=== PATIENT | female | born 1955 | race Caucasian/White ===

== ENCOUNTER → 2017-05-06 | Outpatient (CLI) | payer MEDICARE, OTHER ==
[~2017-05-06] MED LIST: ACIDOPHILUS PROB1 MG PO; CALCIUM + D3 E1 EACH PO; CHOL10002 PO; COQ1050 MG PO; Citalopram HBr20 MG PO; ENOX40I SC; FISH1000 PO; GEMF600 PO; HYDCHL25 PO; HYDMOR2 PO; LOSA25 PO; MULTI FOR HER400 MCG PO; NAPR220 PO; Omeprazole20 M1 PO; VITAMIN B6 PO
[2017-05-06 09:59] LABS: BASOPHILS ABSOLUTE AUTO 0.06 K/mm3 (0.00-0.23); BASOPHILS PERCENT AUTO 1 % (0-2); EOSINOPHILS ABSOLUTE AUTO 0.13 K/mm3 (0.00-0.68); EOSINOPHILS PERCENT AUTO 1 % (0-6); Hematocrit 41.5 % (33.0-51.0); Hemoglobin 14.5 g/dL (11.5-16.0); IMMATURE GRAN ABSOLUTE AUTO 0.06 K/mm3 (0.00-0.10); IMMATURE GRAN PERCENT AUTO 1 % (0-1); LYMPHOCYTES ABSOLUTE AUTO 1.38 K/mm3 (0.84-5.20); LYMPHOCYTES PERCENT AUTO 12 % (21-46); MONOCYTES ABSOLUTE AUTO 1.13 K/mm3 (0.16-1.47); MONOCYTES PERCENT AUTO 10 % (4-13); Mean Corpuscular HGB 32.7 pg (26.0-34.0); Mean Corpuscular HGB Conc 34.9 g/dL (31.5-36.5); Mean Corpuscular Volume 94 fL (80-100); Mean Platelet Volume 9.8 fL (9.1-12.4); NEUTROPHILS ABSOLUTE AUTO 9.18 K/mm3 (1.96-9.15); NEUTROPHILS PERCENT AUTO 77 % (41-73); Platelet Count 252 K/mm3 (150-400); RDW Coefficient Variation 12.4 % (11.7-14.2); RDW Standard Deviation 42.7 fL (35.1-46.3); Red Blood Cell Count 4.43 M/mm3 (3.80-5.20); White Blood Cell Count 11.94 K/mm3 (4.00-11.30)
[2017-05-06 10:09] LABS: Anion Gap 6 mmol/L (6-16); Blood Urea Nitrogen 8 mg/dL (8-24); Bun/Creatinine Ratio 16.3 (12.0-20.0); CO2, Blood 33 mmol/L (21-32); Calcium, Blood 9.5 mg/dL (8.5-10.1); Chloride, Blood 102 mmol/L (98-108); Creatinine, Blood 0.49 mg/dL (0.40-1.00); Glomerular Filtration Rate >60 (60-); Glucose, Blood 116 mg/dL (70-99); Potassium, Blood 3.2 mmol/L (3.5-5.5); Sodium, Blood 141 mmol/L (136-145)
== END ==
LOC: LAB SHORT 09:55
PROVIDERS: Emergency Medicine
DX: E86.0 Dehydration (principal)
CPT/HCPCS: 80048; 85025

== ENCOUNTER → 2017-09-20 | Outpatient (CLI) | payer MEDICARE, OTHER | END | disposition home or self-care (01) | LOC: LAB SHORT 08:14 → PLD 08:14 | DX: L91.0 Hypertrophic scar (principal) | CPT/HCPCS: 88305 ==

== ENCOUNTER 2018-10-01 19:42 | Emergency (ER) | payer MEDICARE, OTHER ==
[~2018-10-01] VITALS: Ht 165.1 cm; Wt 84.4 kg
[~2018-10-01 19:42] MED LIST changes: +ATOR10 PO; +Augmentin 875-1 EACH PO; +Motion Sickness25 M1 PO
[2018-10-01] MEDS ORDERED: MECL12.5 PO (20:27)
[2018-10-01] MEDS ORDERED: ONDA4ODT MM (20:27)
== END 2018-10-01 20:47 | disposition home or self-care (01) ==
LOC: ER 19:42
DX: R42 Dizziness and giddiness (principal); R11.0 Nausea; Z88.5 Allergy status to narcotic agent; Z79.899 Other long term (current) drug therapy; Z87.891 Personal history of nicotine dependence
CPT/HCPCS: 93005; 93010; 96374; 99283-25; J2405

== ENCOUNTER 2019-10-29 10:10 | Day surgery (SDC) | payer MEDICARE ==
[~2019-10-29] VITALS: Ht 157.5 cm; Wt 81.3 kg
[~2019-10-29 10:10] MED LIST changes: +MECL12.5 PO; +ONDA4ODT MM
--- NOTE | 2019-10-29 10:54 | NUR ---
10/29/19 1054 Lili Pinto PT RESTING WELL, SMILING AND LAUGHING. CALL LIGHT WITHIN REACH. IODINE TOPICAL TEST DONE ON LEFT HAND, NO SIGNS OF IRRITATION. PT SKIN WNL ON THE LEFT HAND.
== END 2019-10-29 12:10 | disposition home or self-care (01) ==
LOC: ORSCSDS 10:10
PROVIDERS: Anesthesiology
PROC: 3E0R33Z Introduction of Anti-inflammatory into Spinal Canal, Percutaneous Approach (ICD-10-PCS; principal; 2019-10-29 11:30)
DX: M50.122 Cervical disc disorder at C5-C6 level with radiculopathy (principal); I10 Essential (primary) hypertension; F41.9 Anxiety disorder, unspecified; F41.8 Other specified anxiety disorders; E66.9 Obesity, unspecified; Z68.32 Body mass index [BMI] 32.0-32.9, adult; Z87.891 Personal history of nicotine dependence; Z79.899 Other long term (current) drug therapy
CPT/HCPCS: J1040; J2250; J3010; J7040

== ENCOUNTER 2020-06-22 08:23 | Day surgery (SDC) | payer MEDICARE ==
[~2020-06-22] VITALS: Ht 165.1 cm; Wt 79.1 kg
[~2020-06-22 08:23] MED LIST changes: +CITA20 PO; +FISH OIL 1,2001 EAC7 PO; +MECL25 PO; +MULTIPLE VITAM1 EACH PO; +OMEP20ER PO; +VITAMIN D325 MC3 PO
--- NOTE | 2020-06-22 11:43 | NUR ---
06/22/20 1143 Brooke Salas LATE ENTRY 4ML NORMAL SALINE USED TO ELEVATE SPLENIC FLEXURE POLYP\ 3ML ELEVIEW USED TO ELEVATE HEPATIC FLEXURE POLYP 5ML ELEVIEW USD TO ELEVATE DESCENDING COLON POLYP
== END 2020-06-22 11:25 | disposition home or self-care (01) ==
LOC: ORSCSDS 08:23
PROVIDERS: Internal Medicine Gastroenterology
PROC: 0DBN8ZX Excision of Sigmoid Colon, Via Natural or Artificial Opening Endoscopic, Diagnostic (ICD-10-PCS; principal; 2020-06-22 09:45)
PROC: 0DBP8ZX Excision of Rectum, Via Natural or Artificial Opening Endoscopic, Diagnostic (ICD-10-PCS; principal; 2020-06-22 09:45)
PROC: 0DBL8ZX Excision of Transverse Colon, Via Natural or Artificial Opening Endoscopic, Diagnostic (ICD-10-PCS; principal; 2020-06-22 09:45)
PROC: 0DBM8ZX Excision of Descending Colon, Via Natural or Artificial Opening Endoscopic, Diagnostic (ICD-10-PCS; principal; 2020-06-22 09:45)
PROC: 0DJ08ZZ Inspection of Upper Intestinal Tract, Via Natural or Artificial Opening Endoscopic (ICD-10-PCS; principal; 2020-06-22 09:45)
PROC: 0DBK8ZX Excision of Ascending Colon, Via Natural or Artificial Opening Endoscopic, Diagnostic (ICD-10-PCS; principal; 2020-06-22 09:45)
DX: R19.5 Other fecal abnormalities (principal); K21.9 Gastro-esophageal reflux disease without esophagitis; D12.3 Benign neoplasm of transverse colon; D12.2 Benign neoplasm of ascending colon; D12.4 Benign neoplasm of descending colon; D12.5 Benign neoplasm of sigmoid colon; D12.8 Benign neoplasm of rectum; K57.30 Diverticulosis of large intestine without perforation or abscess without bleeding; K64.8 Other hemorrhoids; Z87.891 Personal history of nicotine dependence; I10 Essential (primary) hypertension; E78.5 Hyperlipidemia, unspecified; Z79.899 Other long term (current) drug therapy
CPT/HCPCS: 88305; J2704; J7040; J7120

== ENCOUNTER 2021-01-25 07:12 | Day surgery (SDC) | payer MEDICARE ==
[~2021-01-25] VITALS: Ht 160 cm; Wt 81.8 kg
[2021-01-25] MEDS ORDERED: MERIBIN5 MG PO (07:53)
== END 2021-01-25 09:05 | disposition home or self-care (01) ==
LOC: ORSCSDS 07:12
PROVIDERS: Orthopaedic Surgery
PROC: 01N50ZZ Release Median Nerve, Open Approach (ICD-10-PCS; principal; 2021-01-25 08:30)
DX: G56.01 Carpal tunnel syndrome, right upper limb (principal); I10 Essential (primary) hypertension; E78.5 Hyperlipidemia, unspecified; E06.3 Autoimmune thyroiditis; Z79.899 Other long term (current) drug therapy
CPT/HCPCS: J2250; J2704; J3010; J7120

== ENCOUNTER 2021-06-15 08:25 | Day surgery (SDC) | payer MEDICARE ==
[~2021-06-15] VITALS: Ht 162.6 cm; Wt 81.2 kg
[~2021-06-15 08:25] MED LIST changes: -CITA20 PO; -FISH OIL 1,2001 EAC7 PO; -OMEP20ER PO; -VITAMIN D325 MC3 PO
[2021-06-15] MEDS ORDERED: HYDCHL25 PO (09:14)
[2021-06-15] MEDS ORDERED: VITAMIN D325 MC3 PO (09:14)
[2021-06-15] MEDS ORDERED: CITA20 PO (09:14)
[2021-06-15] MEDS ORDERED: ATOR10 PO (09:14)
[2021-06-15] MEDS ORDERED: Mobic15 MG PO (09:15)
[2021-06-15] MEDS ORDERED: MERIBIN5 MG PO (09:15)
[2021-06-15] MEDS ORDERED: OMEP20ER PO (09:15)
[2021-06-15] MEDS ORDERED: FISH OIL 1,2001 EAC7 PO (09:15)
== END 2021-06-15 11:28 | disposition home or self-care (01) ==
LOC: ORSCSDS 08:25
PROVIDERS: Internal Medicine Gastroenterology
PROC: 0DBK8ZX Excision of Ascending Colon, Via Natural or Artificial Opening Endoscopic, Diagnostic (ICD-10-PCS; principal; 2021-06-15 09:45)
PROC: 0DBN8ZX Excision of Sigmoid Colon, Via Natural or Artificial Opening Endoscopic, Diagnostic (ICD-10-PCS; principal; 2021-06-15 09:45)
PROC: 0DBL8ZX Excision of Transverse Colon, Via Natural or Artificial Opening Endoscopic, Diagnostic (ICD-10-PCS; principal; 2021-06-15 09:45)
DX: R19.5 Other fecal abnormalities (principal); Z86.010 Personal history of colon polyps; K63.5 Polyp of colon; D12.2 Benign neoplasm of ascending colon; D12.3 Benign neoplasm of transverse colon; K57.30 Diverticulosis of large intestine without perforation or abscess without bleeding; K64.8 Other hemorrhoids; K21.9 Gastro-esophageal reflux disease without esophagitis; F41.9 Anxiety disorder, unspecified; I10 Essential (primary) hypertension; Z87.891 Personal history of nicotine dependence; Z79.899 Other long term (current) drug therapy
CPT/HCPCS: 88305; J2704; J7120

== ENCOUNTER → 2021-10-13 | Outpatient (CLI) | payer MEDICARE ==
[~2021-10-13] MED LIST changes: +CITA20 PO; +FISH OIL 1,2001 EAC7 PO; +MERIBIN5 MG PO; +Mobic15 MG PO; +OMEP20ER PO; +VITAMIN D325 MC3 PO
[2021-10-13 17:47] LABS: Magnesium, Blood 2.2 mg/dL (1.6-2.4)
[2021-10-13 17:49] LABS: Bun/Creatinine Ratio 40.6 (12.0-20.0); Calcium, Blood 9.3 mg/dL (8.5-10.1); Creatinine, Blood 0.42 mg/dL (0.40-1.00); Potassium, Blood 3.5 mmol/L (3.5-5.5); Thyroid Stimulating Hormone 1.07 uIU/mL (0.360-4.800)
== END | disposition home or self-care (01) ==
LOC: LAB 16:09 → LAB SHORT 16:09
PROVIDERS: Internal Medicine Cardiovascular Disease
DX: R07.9 Chest pain, unspecified (principal); R06.02 Shortness of breath; R00.0 Tachycardia, unspecified; R00.2 Palpitations
CPT/HCPCS: 36415; 80048; 83735; 83880; 84443

== ENCOUNTER 2023-08-17 12:40 | Day surgery (SDC) | payer MEDICARE ==
[~2023-08-17] VITALS: Ht 162.6 cm; Wt 86.4 kg
[~2023-08-17 12:40] MED LIST changes: +Aspir 8181 MG PO; +C COMPLEX1000 M1 PO; +Lactated Ringer's 1,000 ML IV ONE; +POTCHL20ER PO; +Ropivacaine 0.5% HCl/Pf 5 MG/ML 20ML VIAL ONE; +UBID10 PO
[2023-08-17] MEDS ORDERED: propofoL 20 ML IV ONE ×2 (12:45→15:20)
[2023-08-17] MEDS ORDERED: FentaNYL Citrate 50 MCG/ML 2 ML Injection ONE (12:45)
[2023-08-17] MEDS ORDERED: CeFAZolin Sodium 2,000 MG VIAL ONE (12:51)
[2023-08-17] MEDS ORDERED: NS 50 ML IV ONE (12:51)
[2023-08-17] MEDS ORDERED: Lactated Ringer's 1,000 ML IV ONE (13:20)
--- NOTE | 2023-08-17 13:48 | NUR ---
[facility]17/23 [facility] PT REPORTS IODINE ALLERGY TO IODINE IV CONSTRAST WITH REACTION OF ANAPHYLAXIS. PER PATIENT, SHE HAS HAD SEVERAL SURGERIES IN WHICH SHE BELIEVES IODINE WAS USED AND SHE HAD NO ISSUES. OK PER PATIENT TO PERFORM IODINE SKIN TEST. IODINE APPLIED TO R FOREARM AT 1313. 1325: NO REACTION NOTED TO IODINE SKIN TEST. AREA DOES NOT APPEAR SWOLLEN, HOT, RED, OR TENDER TO THE TOUCH. PATIENT REPORTS NO FEELINGS OF SHORTNESS OF BREATH OR OTHER ISSUES.
[2023-08-17] MEDS ORDERED: Midazolam HCl 1MG / ML 2ML Vial ONE (14:42)
[2023-08-17] MEDS ORDERED: Lidocaine HCl 2% 20 ML MDV INJ ONE (15:17)
[2023-08-17] MEDS ORDERED: EPINEPhrine HCl 1 MG/ML 1ML Amp XX ONE (15:20)
[2023-08-17] MEDS ORDERED: Ropivacaine 0.5% HCl/Pf 5 MG/ML 20ML VIAL INJ ONE (15:20)
[2023-08-17 15:44] VITALS: BP 148/94
== END 2023-08-17 16:35 | disposition home or self-care (01) ==
LOC: ORSCSDS 12:40
PROVIDERS: Podiatrist Foot & Ankle Surgery
PROC: 0QBM0ZZ Excision of Left Tarsal, Open Approach (ICD-10-PCS; principal; 2023-08-17 14:10)
DX: M89.8X7 Other specified disorders of bone, ankle and foot (principal); I10 Essential (primary) hypertension; K21.9 Gastro-esophageal reflux disease without esophagitis; E66.9 Obesity, unspecified; Z68.32 Body mass index [BMI] 32.0-32.9, adult; Z79.82 Long term (current) use of aspirin; Z79.899 Other long term (current) drug therapy
CPT/HCPCS: J0171; J0690; J2250; J2704; J2795; J3010; J7120

== ENCOUNTER 2024-04-24 07:58 | Inpatient (IN) | payer MEDICARE ==
[~2024-04-24] VITALS: Ht 165.1 cm; Wt 89.6 kg
[~2024-04-24 07:58] MED LIST changes: +FISH OIL 1,0001 EA10 PO; -FISH OIL 1,2001 EAC7 PO; -Lactated Ringer's 1,000 ML IV ONE; -Ropivacaine 0.5% HCl/Pf 5 MG/ML 20ML VIAL ONE
[2024-04-24] MEDS ORDERED: Acetaminophen 325 MG TABLET PO ONE (08:40)
[2024-04-24] MEDS ORDERED: NS 1,000 ML IV SCH (08:40)
[2024-04-24 08:50] LABS: BASOPHILS ABSOLUTE AUTO 0.06 K/mm3 (0.00-0.23); BASOPHILS PERCENT AUTO 0 % (0-2); EOSINOPHILS ABSOLUTE AUTO 0.05 K/mm3 (0.00-0.68); EOSINOPHILS PERCENT AUTO 0 % (0-6); Hematocrit 38.9 % (33.0-51.0); Hemoglobin 13.4 g/dL (11.5-16.0); IMMATURE GRAN ABSOLUTE AUTO 0.09 K/mm3 (0.00-0.10); IMMATURE GRAN PERCENT AUTO 1 % (0-1); LYMPHOCYTES ABSOLUTE AUTO 1.83 K/mm3 (0.84-5.20); LYMPHOCYTES PERCENT AUTO 11 % (21-46); MONOCYTES ABSOLUTE AUTO 1.57 K/mm3 (0.16-1.47); MONOCYTES PERCENT AUTO 9 % (4-13); Mean Corpuscular HGB 31.7 pg (26.0-34.0); Mean Corpuscular HGB Conc 34.4 g/dL (31.5-36.5); Mean Corpuscular Volume 92 fL (80-100); Mean Platelet Volume 9.9 fL (9.1-12.4); NEUTROPHILS ABSOLUTE AUTO 13.02 K/mm3 (1.96-9.15); NEUTROPHILS PERCENT AUTO 78 % (41-73); Platelet Count 284 K/mm3 (150-400); RDW Coefficient Variation 11.9 % (11.7-14.2); RDW Standard Deviation 40.4 fL (35.1-46.3); Red Blood Cell Count 4.23 M/mm3 (3.80-5.20); White Blood Cell Count 16.62 K/mm3 (4.00-11.30)
[2024-04-24 09:01] LABS: Albumin, Blood 2.8 g/dL (3.4-5.0); Albumin/Globulin Ratio 0.5 (0.8-1.8); Bilirubin, Total 0.5 mg/dL (0.1-1.0); Bun/Creatinine Ratio 14.6 (12.0-20.0); Calcium, Blood 9.9 mg/dL (8.5-10.1); Creatinine, Blood 0.48 mg/dL (0.40-1.00); Globulin, Blood 5.3 g/dL (2.2-4.0); Potassium, Blood 3.2 mmol/L (3.5-5.5); Total Protein, Blood 8.1 g/dL (6.4-8.2)
[2024-04-24 09:43] LABS: CORONAVIRUS COVID-19 AG Negative (NEGATIVE); INFLUENZA A AG Negative (NEGATIVE); INFLUENZA B AG Negative (NEGATIVE)
[2024-04-24] MEDS ORDERED: Azithromycin 500 MG in NS 250 ML IV ONE (10:50)
[2024-04-24] MEDS ORDERED: CefTRIAXone Sodium 2,000 MG in NS 100 ML IV ONE (10:55)
[2024-04-24] MEDS ORDERED: Magnesium Hydroxide Conc 10 ML UDC PO PRN (11:20)
[2024-04-24] MEDS ORDERED: Ondansetron 4 MG TAB PO PRN (11:20)
[2024-04-24] MEDS ORDERED: FLU VACC TS2024-25(6MOS UP)/PF 45 MCG/0.5 ML SYRINGE IM SCH (11:20)
[2024-04-24] MEDS ORDERED: Zolpidem Tartrate 5 MG Tab PO PRN (11:20)
[2024-04-24] MEDS ORDERED: Bisacodyl 10 MG Supp PR PRN (11:25)
[2024-04-24] MEDS ORDERED: Ipratropium/Albuterol SulF 2.5-0.5MG/3 ML Amp INH SCH ×2 (11:25→19:38)
[2024-04-24] MEDS ORDERED: OxyCODONE HCL 5 MG TAB PO PRN (11:30)
[2024-04-24] MEDS ORDERED: Acetaminophen 325 MG TABLET PO PRN (11:30)
[2024-04-24] MEDS ORDERED: HydrALAZINE HCl 20 MG / ML 1ML Vial IV PRN (11:30)
[2024-04-24] MEDS ORDERED: Potassium Chloride 20 MEQ TabCR PO ONE (12:00)
[2024-04-24 13:09] VITALS: BP 139/68
[2024-04-24 15:09] VITALS: BP 113/47
--- NOTE | 2024-04-24 15:49 | NUR ---
SHIFT SUMMARY 1304 RECEIVED PT TO RM 332 VIA W/C FROM ER. PT ABLE TO TX SELF TO BED. PT RECEIVING IV ABX INFUSING TO RM AND THEN IV SL. PT UP INDEPENDENTLY TO BTHRM. PT ADMITTED FOR CONTINUED COUGH, SINUS CONGESTION AND L EAR PAIN. PT FAILED OUTPT ABX, NOW RECEIVING IV ABX FOR PNM. PT MEDICATED WITH TYLENOL X1 FOR EAR PAIN. NOW RESTING QUIETLY. DENIED FURTHER NEEDS. CALL LT IN REACH.
[2024-04-24 17:00] LABS: Adenovirus Not Detected (NOT DETECT); Bordetella pertussis Not Detected (NOT DETECT); Chlamydophila pneumoniae Not Detected (NOT DETECT); Coronavirus 229E Not Detected (NOT DETECT); Coronavirus HKU1 Not Detected (NOT DETECT); Coronavirus NL63 Not Detected (NOT DETECT); Coronavirus OC43 Not Detected (NOT DETECT); Human Metapneumovirus Not Detected (NOT DETECT); Human Rhinovirus/Enterovirus Not Detected (NOT DETECT); Influenza A/2009-H1 Not Detected (NOT DETECT); Influenza A/H1 Not Detected (NOT DETECT); Influenza A/H3 Not Detected (NOT DETECT); Influenza B Not Detected (NOT DETECT); Mycoplasma pneumoniae Not Detected (NOT DETECT); Parainfluenza Virus 1 Not Detected (NOT DETECT); Parainfluenza Virus 2 Not Detected (NOT DETECT); Parainfluenza Virus 3 Not Detected (NOT DETECT); Parainfluenza Virus 4 Not Detected (NOT DETECT); Respiratory Syncytial Virus Not Detected (NOT DETECT); SARS-Cov-2 (COVID-19), BioFire Not Detected (NOT DETECT)
[2024-04-24 20:11] VITALS: BP 144/71
[2024-04-24] MEDS ORDERED: Famotidine 20 MG Tab PO SCH (21:00)
[2024-04-24] MEDS ORDERED: Lactobacil 2-S.Thermo-Bifido 1 1 Cap PO SCH (21:00)
[2024-04-25 02:28] VITALS: BP 133/66
--- NOTE | 2024-04-25 05:14 | NUR ---
SHIFT SUMMARY PATIENT CONTINUES TO HAVE LEFT EAR PAIN ON/OFF WHICH STARTED ON DAY SHIFT. MEDICATED PER EMAR WITH OXYCODONE 5 MG AND ALTERNATED WITH TYLENOL. AXOX 4 AND INDEPENDENT. PIV INTACT. TELE MONITOR ST 104. DENIES CHEST PAIN, SOB, AND N/V. VSS/AFEBRILE. AMBIEN 5 MG GIVEN FOR INSOMNIA. CALL LIGHT IN REACH. BED IN LOWEST POSITION. WILL CONTINUE TO MONITOR UNTIL DAY SHIFT NURSE ASSUMES CARE.
[2024-04-25] MEDS ORDERED: Omeprazole 20 MG CapCR PO SCH (06:00)
[2024-04-25 06:01] LABS: BASOPHILS ABSOLUTE AUTO 0.05 K/mm3 (0.00-0.23); BASOPHILS PERCENT AUTO 0 % (0-2); EOSINOPHILS ABSOLUTE AUTO 0.13 K/mm3 (0.00-0.68); EOSINOPHILS PERCENT AUTO 1 % (0-6); IMMATURE GRAN PERCENT AUTO 1 % (0-1); LYMPHOCYTES ABSOLUTE AUTO 1.51 K/mm3 (0.84-5.20); LYMPHOCYTES PERCENT AUTO 11 % (21-46); MONOCYTES ABSOLUTE AUTO 1.42 K/mm3 (0.16-1.47); MONOCYTES PERCENT AUTO 10 % (4-13); Mean Corpuscular HGB 31.5 pg (26.0-34.0); Mean Corpuscular HGB Conc 33.3 g/dL (31.5-36.5); Mean Corpuscular Volume 95 fL (80-100); Mean Platelet Volume 9.7 fL (9.1-12.4); NEUTROPHILS ABSOLUTE AUTO 10.57 K/mm3 (1.96-9.15); NEUTROPHILS PERCENT AUTO 77 % (41-73); Platelet Count 272 K/mm3 (150-400); Red Blood Cell Count 3.81 M/mm3 (3.80-5.20); White Blood Cell Count 13.78 K/mm3 (4.00-11.30)
[2024-04-25 06:29] LABS: Albumin, Blood 2.4 g/dL (3.4-5.0); Albumin/Globulin Ratio 0.5 (0.8-1.8); Bilirubin, Total 0.4 mg/dL (0.1-1.0); Bun/Creatinine Ratio 17.5 (12.0-20.0); Calcium, Blood 9.3 mg/dL (8.5-10.1); Creatinine, Blood 0.4 mg/dL (0.40-1.00); Globulin, Blood 5.1 g/dL (2.2-4.0); Magnesium, Blood 2.3 mg/dL (1.6-2.4); Potassium, Blood 3.6 mmol/L (3.5-5.5); Total Protein, Blood 7.5 g/dL (6.4-8.2)
[2024-04-25 07:41] VITALS: BP 107/56
[2024-04-25] MEDS ORDERED: Azithromycin 250 MG Tab PO SCH (09:00)
[2024-04-25] MEDS ORDERED: CefTRIAXone Sodium 2,000 MG in NS 100 ML IV SCH (09:00)
[2024-04-25] MEDS ORDERED: Enoxaparin 40 MG/0.4 ML SYR SC SCH (09:00)
[2024-04-25] MEDS ORDERED: Aspirin 81 MG Chew PO SCH (09:00)
[2024-04-25] MEDS ORDERED: HydroCHLOROthiazide 25 mg Tab PO SCH (09:00)
[2024-04-25] MEDS ORDERED: Citalopram Hydrobromide 20 MG Tab PO SCH (09:00)
[2024-04-25] MEDS ORDERED: Atorvastatin 10 MG Tab PO SCH (09:00)
[2024-04-25] MEDS ORDERED: AMOCLA875 PO (11:12)
[2024-04-25 15:43] VITALS: BP 149/68
--- NOTE | 2024-04-25 17:23 | NUR ---
PT PLEASANT AND COOP TODAY. LIGHTLY TACHY T/O DAY. DOES COMPLAIN ABOUT SOME EAR PAIN. HAS DISCUSSED WITH PAIN MEDS COVER TO PT SATISFACTION. FAMILY IN TO VISIT TODAY. PT STATES JSUT NOT FEELING STABLE ENOUGH TO GO HOME TODAY. HOPEFUL FOR TOMORROW. BED IN LOW POSITION, CALL LITE IN REACH, CALLS APPROP
[2024-04-25 20:40] VITALS: BP 118/65
--- NOTE | 2024-04-26 03:10 | NUR ---
ART TRACER SUMMARY VSS. ALERT AND ORIENTED. UP AD ABELARDO. VOICED WANTING TO BE DC'D TOMORROW. LUNG SOUNDS DIMINISHED IN LOWER LOBES, OCCASIONAL EXP WHEEZE TO AUSCULTATION. MED TELE ST AT 117. ASYMPTOMATIC. HAS BEEN RESTING QUIETLY SINCE HS AFTER MEDS GIVEN. ABLE TO REPOSITION SELF IN BED WITHOUT ASSIST. CALL LIGHT IN REACH, RAILS UP X 2 AND BED IN LOW POSITION FOR SAFETY. NO NOTED S/S ACUTE DISTRESS. WILL CONTINUE TO MONITOR
[2024-04-26 04:27] VITALS: BP 139/64
[2024-04-26 07:18] VITALS: BP 128/61
[2024-04-26 07:28] LABS: BASOPHILS ABSOLUTE AUTO 0.05 K/mm3 (0.00-0.23); BASOPHILS PERCENT AUTO 0 % (0-2); EOSINOPHILS ABSOLUTE AUTO 0.13 K/mm3 (0.00-0.68); EOSINOPHILS PERCENT AUTO 1 % (0-6); Hematocrit 35.9 % (33.0-51.0); IMMATURE GRAN PERCENT AUTO 1 % (0-1); LYMPHOCYTES ABSOLUTE AUTO 1.32 K/mm3 (0.84-5.20); LYMPHOCYTES PERCENT AUTO 11 % (21-46); MONOCYTES ABSOLUTE AUTO 1.42 K/mm3 (0.16-1.47); MONOCYTES PERCENT AUTO 12 % (4-13); Mean Corpuscular HGB 31.1 pg (26.0-34.0); Mean Corpuscular HGB Conc 33.4 g/dL (31.5-36.5); Mean Corpuscular Volume 93 fL (80-100); Mean Platelet Volume 10.2 fL (9.1-12.4); NEUTROPHILS ABSOLUTE AUTO 9.32 K/mm3 (1.96-9.15); NEUTROPHILS PERCENT AUTO 76 % (41-73); Platelet Count 325 K/mm3 (150-400); RDW Coefficient Variation 11.9 % (11.7-14.2); RDW Standard Deviation 40.1 fL (35.1-46.3); Red Blood Cell Count 3.86 M/mm3 (3.80-5.20); White Blood Cell Count 12.34 K/mm3 (4.00-11.30)
[2024-04-26 07:29] LABS: Bun/Creatinine Ratio 17.4 (12.0-20.0); Calcium, Blood 9.7 mg/dL (8.5-10.1); Creatinine, Blood 0.46 mg/dL (0.40-1.00); Magnesium, Blood 2.4 mg/dL (1.6-2.4); Potassium, Blood 3.4 mmol/L (3.5-5.5)
[2024-04-26] MEDS ORDERED: NS 250 ML IV PRN (09:25)
[2024-04-26] MEDS ORDERED: PROAIR RESPICL90 MCG INH (13:15)
[2024-04-26] MEDS ORDERED: LEVO750 PO (13:15)
--- NOTE | 2024-04-26 14:05 | NUR ---
DISCHARGE NOTE PT A&OX4 AND ANSWERS QUESTIONS APPROPRIATELY. PT RECEIVED SCHEDULED AND PRN MEDICATIONS. PT SEEN BY HOSPITALIST, CLEARED TO DISCHARGE HOME TODAY. VSS, NO COMPLAINTS OF CP/PRESSURE OR SOB. NO ACUTE EVENTS AT THIS TIME. IV REMOVED WITHOUT ANY ADVERSE EFFECTS. MEDS FAXED TO [facility]. PT RECEIVED DC EDUCATION AND VERBALIZED UNDERSTANDING INSTRUCTIONS. PT DISCHARGED HOME VIA W/C TO PERSONAL VEHICLE. ALL PERSONAL BELONGINGS OOR.
== END 2024-04-26 13:43 | disposition home or self-care (01) | DRG 871 ==
LOC: ER 07:58 → MEDS 11:17 → ERHOLD 11:17 → MEDS 13:09
PROVIDERS: Physician Assistant; ADMIT Hospitalist
DX: A41.9 Sepsis, unspecified organism (principal); J18.9 Pneumonia, unspecified organism; F32.A Depression, unspecified; E78.5 Hyperlipidemia, unspecified; K21.9 Gastro-esophageal reflux disease without esophagitis; I10 Essential (primary) hypertension; Z91.040 Latex allergy status; Z88.8 Allergy status to other drugs, medicaments and biological substances; Z79.82 Long term (current) use of aspirin; Z98.1 Arthrodesis status; Z87.891 Personal history of nicotine dependence
CPT/HCPCS: 0202U; 36415; 71046; 80048; 80053; 83605; 83735; 84484; 85025; 87040; 87428-QW; 93005; 93010; 94640; 94664; 94760; 96361; 96374; 99285-25; A9270; J0456; J0696; J1650; J7030; J7050

== ENCOUNTER 2025-01-16 07:47 | Day surgery (SDC) | payer MEDICARE ==
[~2025-01-16] VITALS: Ht 162.6 cm; Wt 91.2 kg
[~2025-01-16 07:47] MED LIST changes: +AMOCLA875 PO; +LEVO750 PO; +PROAIR RESPICL90 MCG INH
[2025-01-16] MEDS ORDERED: OLMESARTAN MEDOX5 MG (08:10)
[2025-01-16 10:10] VITALS: BP 114/67
== END 2025-01-16 10:00 | disposition home or self-care (01) ==
LOC: ORSCSDS 07:47
PROVIDERS: Internal Medicine Gastroenterology
PROC: 0DB58ZX Excision of Esophagus, Via Natural or Artificial Opening Endoscopic, Diagnostic (ICD-10-PCS; principal; 2025-01-16 09:00)
PROC: 0DB68ZX Excision of Stomach, Via Natural or Artificial Opening Endoscopic, Diagnostic (ICD-10-PCS; principal; 2025-01-16 09:00)
PROC: 0DB98ZX Excision of Duodenum, Via Natural or Artificial Opening Endoscopic, Diagnostic (ICD-10-PCS; principal; 2025-01-16 09:00)
DX: R10.13 Epigastric pain (principal); K22.70 Barrett's esophagus without dysplasia; R68.81 Early satiety; R11.0 Nausea; Z79.82 Long term (current) use of aspirin; Z79.899 Other long term (current) drug therapy; I10 Essential (primary) hypertension; E78.5 Hyperlipidemia, unspecified; Z87.891 Personal history of nicotine dependence
CPT/HCPCS: 88305; 88342; J2704; J7120